=== PATIENT | female | born 1975 | race Caucasian/White ===

== ENCOUNTER → 2021-10-09 | Outpatient (CLI) | payer MEDICARE, MEDICAID | LOC: M LABSMTC 10:59 | PROVIDERS: ATTEND Neurological Surgery | DX: Z01.812 Encounter for preprocedural laboratory examination (principal); M54.12 Radiculopathy, cervical region; Z20.822 Contact with and (suspected) exposure to COVID-19 ==

== ENCOUNTER → 2023-04-28 | Outpatient (CLI) | payer MEDICARE, MEDICAID ==
[~2023-04-28] MED LIST: ALBU8.5H INH; CLOM75CA3 PO; ISOVUE-M 300 61% 15ML VIAL As Ordered ONE; KLON0.5T PO; LAMI1TAB9 PO; LATU80TA2 PO; LEVO50TA5 PO; TRAZ1TAB14 PO
[2023-04-28 08:14] VITALS: TEMP 97.7
[2023-04-28 08:49] LABS: HEMATOCRIT 34.5 % (36.0-47.0); HEMOGLOBIN 11.6 g/dl (12.0-15.5); MEAN CORPUSCULAR HEMOGLOBIN 27.6 pg (27.0-33.0); MEAN CORPUSCULAR HGB CONC 33.6 g/dl (32.0-36.5); MEAN CORPUSCULAR VOLUME 81.9 fl (80.0-96.0); PLATELET COUNT, AUTOMATED 307 10^3/uL (150-450); RED BLOOD COUNT 4.21 10^6/uL (4.00-5.40); WHITE BLOOD COUNT 7.1 10^3/uL (4.0-10.0)
[2023-04-28 11:25] VITALS: BP 105/59; O2SAT 98
== END ==
LOC: M IRPRO 07:57
DX: M54.12 Radiculopathy, cervical region (principal)
CPT/HCPCS: 36415; 62284; 72125; 85027; Q9967